=== PATIENT | female | born 1935 | race Caucasian/White ===

== ENCOUNTER 2019-06-09 14:10 | Inpatient (IN) | payer OTHER, MEDICARE ==
[2019-06-09] MEDS ORDERED: SODIUM CHLORIDE 500 ML IV STA ×2 (14:49→16:08)
[2019-06-09 15:17] LABS: BASO % 2.8 % (0-2.0); EOS % 0.2 % (0-4.5); HEMATOCRIT 46.1 % (32.4-45.2); HEMOGLOBIN 15.3 GM/dl (10.7-15.3); LYMPH % 18.5 % (8-40); MCH 29.4 pg (25.7-33.7); MCHC 33.2 g/dl (32.0-36.0); MEAN CELL VOLUME 88.4 fl (80-96); MEAN PLT VOLUME 9.8 fl (7.5-11.1); MONO % 6.3 % (3.8-10.2); NEUT % 72.2 % (42.8-82.8); PLATELET COUNT 280 K/MM3 (134-434); RBC 5.22 M/mm3 (3.60-5.2); RDW 13.2 % (11.6-15.6); WHITE BLOOD COUNT 15.1 K/mm3 (4.0-10.8)
[2019-06-09 15:26] LABS: ALBUMIN 3.8 g/dl (3.4-5.0); BILIRUBIN,TOTAL 1.1 mg/dl (0.2-1); CALCIUM 9.6 mg/dl (8.5-10); POTASSIUM 3.4 mmol/L (3.5-5.1); TOT PROT 6.8 g/dl (6.4-8.2)
--- NOTE | 2019-06-09 19:04 | PDOC ---
Documentation entered by Franky Rosales SCRIBE, acting as scribe for Avery Leong MD. Avery Leong MD: This documentation has been prepared by the Connie alford Nirvannie, SCRIBE, under my direction and personally reviewed by me in its entirety. I confirm that the documentation accurately reflects all work, treatment, procedures, and medical decision making performed by me. History of Present Illness - General Chief Complaint: Vomiting/Diarrhea Stated Complaint: N/V/D Time Seen by Provider: 06/09/19 14:22 History Source: Patient, Family Exam Limitations: No Limitations - History of Present Illness Initial Comments: 06/09/19 15:44 The patient is an 87 year old female, with a significant past medical history of hypothyroidism and essential tremors, who presents to the emergency department via EMS from [facility] with 2 weeks of progressively worsening generalized weakness with new onset one day of NBNB nausea, vomiting, and nonbloody diarrhea. As per daughter and son-in-law at bedside, she has been increasingly weak over the course of the past 2 weeks described as wanting to lay down in bed after minimal walking. Son-in-law notes the patient has been increasingly forgetful and calling them for issues with her phone when it was indeed her remote control. Patient was recently evaluated by a new PCP with a full blood and urine panel. She was found to have a slightly elevated WBC, however, secondary to issues with urine collection her urinalysis is still pending. Family notes her nausea, vomiting, and diarrhea onset today, prompting her arrival to the ED. While in the ED, patient endorses an associated mild cough beginning today. Family and patient denies any new changes in medication. She denies any abdominal pain. She denies recent fevers, chills, headache or dizziness. Family and patient denies recent dysuria, frequency, urgency or hematuria. She denies recent chest pain or shortness of breath. Allergies: NKDA Past surgical history: Hysterectomy. Social history: Resident at [facility]. Primary Care Physician: Dr. Doherty Past History - Past Medical History Allergies/Adverse Reactions: Allergies Allergy/AdvReac Type Severity Reaction Status Date / Time No Known Allergies Allergy Verified 06/09/19 14:48 Home Medications: Ambulatory Orders Donepezil HCl [Aricept -] 10 mg PO DAILY 06/09/19 Famotidine [Pepcid] 20 mg PO DAILY 06/09/19 Levothyroxine [Synthroid -] 75 mcg PO DAILY 06/09/19 Propranolol HCl 20 mg PO HS 06/09/19 Propranolol HCl 40 mg PO AM 06/09/19 Amoxicillin/Potassium Clav [Augmentin 875-125 Tablet] 1 each PO BID #8 tablet Review of Systems - Review of Systems Able to Perform ROS?: Yes Comments:: 06/09/19 15:44 CONSTITUTIONAL: Present: Generalized weakness No reported: Fever, Chills, Diaphoresis, Loss of Appetite HEENT: No reported: Rhinorrhea, Nasal Congestion, Throat Pain, Throat Swelling, Difficulty Swallowing, Mouth Swelling, Ear Pain, Eye Pain, Visual Changes CARDIOVASCULAR: No reported: Chest Pain, Syncope, Palpitations, Irregular Heart Rate, Lightheadedness, Peripheral Edema RESPIRATORY: No reported: Cough, Shortness of Breath, SOB with Exertion, Orthopnea, Wheezing , Stridor, Hemoptysis GASTROINTESTINAL: Present: Nausea, Vomiting, Diarrhea No reported: Abdominal pain, Abdominal Distension,Constipation, Melena, Hematochezia GENITOURINARY: No reported: Dysuria, Frequency, Urgency, Hesitancy, Flank Pain, Genital Pain MUSCULOSKELETAL: No reported: Myalgia, Arthralgia, Joint Swelling, Back pain, Neck Pain SKIN: No reported: Rash, Itching, Pallor HEMEATOLOGIC/IMMUNOLOGIC: No reported: Easy Bleeding, Easy Bruising, Lymphadenopathy, Frequent infections ENDOCRINE: No reported: Unexplained Weight Gain, Unexplained Weight Loss, Heat Intolerance , Cold Intolerance NEUROLOGIC: No reported: Headache, Focal Weakness, Paresthesias, Vertigo, Lightheadedness, Unsteady Gait, Seizure, Incontinence PSYCHIATRIC: No reported: Anxiety, Depression All Other Systems: Reviewed and Negative *Physical Exam - Vital Signs Last Vital Signs Temp Pulse Resp BP Pulse Ox 99.3 F 63 16 109/69 94 L 06/09/19 14:45 06/09/19 14:45 06/09/19 14:45 06/09/19 14:45 06/09/19 14:45 - Physical Exam 06/09/19 14:54 GENERAL: The patient is awake, alert, Nontoxic - in no acute distress. HEAD: Normocephalic, atraumatic. EYES: extraocular movements intact, sclera anicteric, conjunctiva clear. ENT: Normal voice, dry mucous membranes. NECK: Normal range of motion, supple LUNGS: Breath sounds equal, clear to auscultation bilaterally. No wheezes, no rhonchi, no rales. HEART: Regular rate and rhythm, normal S1 and S2 without murmur, rub or gallop. ABDOMEN: Soft, nontender, No guarding, no rebound. No CVA tenderness EXTREMITIES: Normal range of motion, no edema. NEUROLOGICAL: No facial assymetry, Normal speech, Moving all fours extremities spontaneously and symmetrically, Gross touch intact in upper and lower extremities PSYCH: Normal mood, normal affect. SKIN: Warm, Dry, normal turgor, ED Treatment Course - LABORATORY CBC & Chemistry Diagram: 06/12/19 08:04 06/12/19 08:04 - RADIOLOGY Radiology Studies Ordered: Category Date Time Status CHEST X-RAY PORTABLE* [RAD] Stat Radiology 06/09/19 14:49 Ordered Medical Decision Making - Medical Decision Making 06/09/19 14:55 84-year-old female history of hypothyroidism, Essential tremor presenting with complaint of Generalized weakness and malaise for the last several weeks without Any associated complaints, she does endorse several episodes of vomiting and diarrhea today Without abdominal pain, Fevers, chills, dysuria. Family notes the patient did follow-up with her doctor who had some blood work drawn several days ago with a leukocytosis Doubt any other focality. No changes to her dosage of medications of propranolol nor her Synthroid recently. On exam the patient is in no distress she appears generally weak mildly dry mucous membranes. Her neuro exam is intact. Differential for the patient's symptoms is broad and includes occult infection, metabolic derangements, dehydartion, hypothryroidism Will obtain blood work, UA, chest x-ray, EKG, troponin, tsh We will give the patient 500 cc of fluid 06/09/19 19:03 pts labs reviewed unremarkable ua negative will admit for further management of generali weakness pt unable to ambulate due to weakness. may need rehab/placement pt with mild suprapupbic tenderness, will obtain CT Discharge - Discharge Information Problems reviewed: Yes Clinical Impression/Diagnosis: Dehydration, Failure to thrive in adult Condition: Good - Admission Yes - Follow up/Referral - Patient Discharge Instructions - Post Discharge Activity
--- NOTE | 2019-06-09 20:18 | PDOC ---
*Physical Exam - Vital Signs Last Vital Signs Temp Pulse Resp BP Pulse Ox 98.2 F 78 17 150/78 95 06/09/19 18:11 06/09/19 18:11 06/09/19 18:11 06/09/19 18:11 06/09/19 18:11 ED Treatment Course - LABORATORY CBC & Chemistry Diagram: 06/09/19 15:00 06/09/19 15:00 - ADDITIONAL ORDERS Additional order review: Laboratory Results 06/09/19 06/09/19 06/09/19 18:00 15:00 15:00 Sodium 136 Potassium 3.4 L Chloride 102 Carbon Dioxide 25 Anion Gap 9 BUN 27.0 H Creatinine 1.0 Est GFR (CKD-EPI)AfAm 60.76 Est GFR (CKD-EPI)NonAf 52.42 Random Glucose 127 H Calcium 9.6 Total Bilirubin 1.1 H AST 27 ALT 22 Alkaline Phosphatase 52 Creatine Kinase 88 Troponin I < 0.03 Total Protein 6.8 Albumin 3.8 Urine Color Yellow Urine Appearance Clear Urine pH 6.0 Urine Protein Trace Urine Glucose (UA) Negative Urine Ketones 1+ H Urine Blood Trace-lysed Urine Nitrite Negative Urine Bilirubin Negative Urine Urobilinogen 0.2 Ur Leukocyte Esterase Negative Urine RBC 5-10 Urine WBC 2-5 Urine Bacteria Few 06/09/19 15:00 RBC 5.22 H MCV 88.4 MCHC 33.2 RDW 13.2 MPV 9.8 Neutrophils % 72.2 Lymphocytes % 18.5 Monocytes % 6.3 Eosinophils % 0.2 Basophils % 2.8 H - Medications Given in the ED: ED Medications Discontinued Medications Generic Name Dose Route Start Last Admin Trade Name Freq PRN Reason Stop Dose Admin Sodium Chloride 500 mls @ 500 mls/hr 06/09/19 14:49 06/09/19 15:11 Normal Saline - IV 06/09/19 15:48 500 mls/hr ASDIR STA Administration Sodium Chloride 500 mls @ 500 mls/hr 06/09/19 16:08 06/09/19 16:08 Normal Saline - IV 06/09/19 17:07 500 mls/hr ASDIR STA Administration ED Progress Note - Progress Note Progress Note: 06/09/19 20:17 Care of this patient was transferred to [place] from Dr. dc at 1900 hrs. Patient is an 84-year-old female who comes in for failure to thrive. Patient is just has generalized weakness. Patients labs show an elevated white count with no focus at this point. However patient does have a CAT scan pending as she has had no appetite and some nausea vomiting and diarrhea. Discharge - Discharge Information Problems reviewed: Yes Clinical Impression/Diagnosis: Dehydration, Failure to thrive in adult Condition: Good - Admission Yes - Follow up/Referral - Patient Discharge Instructions - Post Discharge Activity
[2019-06-09] MEDS ORDERED: ONDANSETRON 4 MG/2 ML VIAL IVPUSH ONE (20:33)
[2019-06-09] MEDS ORDERED: ONDANSETRON 4 MG/2 ML VIAL ONE (20:35)
[2019-06-09] MEDS: HEPARIN NA (PORCINE) 5,000 UNITS/ML 1ML VIAL SQ SCH (23:15)
[2019-06-10] MEDS: LEVOTHYROXINE NA 75 MCG TABLET (FP) PO SCH (06:43)
--- NOTE | 2019-06-10 07:36 | HP ---
CHIEF COMPLAINT: Generalized weakness PCP: None Neurologist: Zayda Ramires HISTORY OF PRESENT ILLNESS: The patient is an 87 year-old female with a PMH significant for hypothyroidism and essential tremors, who presents to the emergency department via EMS from [facility] with 2 weeks of progressively worsening generalized weakness and with nausea, vomiting, and nonbloody diarrhea x 1 day. As per daughter and son-in-law at bedside, she has been increasingly weak over the course of the past 2 weeks described as wanting to lay down in bed after minimal exertion. Family notes her nausea, vomiting, and diarrhea onset today, prompting her arrival to the ED. While in the ED, patient endorses an associated mild cough beginning today. Family and patient denies any new changes in medication. She denies any abdominal pain. She denies recent fevers, chills, headache or dizziness. Family and patient denies recent dysuria, frequency, urgency or hematuria. She denies recent chest pain or shortness of breath. No significant weight loss, no night sweats, no hemoptysis. ER course was notable for: (1) WBC 15.1k, afebrile (2) Pyuria Recent Travel: No PAST MEDICAL HISTORY: Hypothyroidism Essential tremors PAST SURGICAL HISTORY: Hysterectomy Cholecystectomy Social History: moved from [place] after last year, lives at [facility], daughter lives close by Smoking: no Alcohol: no Drugs: no Family history: mother 69 lung cancer; father 84 colon cancer Allergies No Known Allergies Allergy (Verified 06/09/19 14:48) HOME MEDICATIONS: Home Medications Medication Instructions Recorded Donepezil HCl [Aricept -] 10 mg PO DAILY 06/09/19 Famotidine [Pepcid] 20 mg PO DAILY 06/09/19 Levothyroxine [Synthroid -] 75 mcg PO DAILY 06/09/19 Propranolol HCl 20 mg PO HS 06/09/19 Propranolol HCl 40 mg PO AM 06/09/19 REVIEW OF SYSTEMS: patient lethargic, unable to answer questions PHYSICAL EXAMINATION Vital Signs - 24 hr 06/09/19 06/09/19 06/09/19 14:45 18:11 22:12 Temperature 99.3 F 98.2 F Pulse Rate 63 Pulse Rate [ 78 78 Apical] Respiratory 16 17 18 Rate Blood Pressure 109/69 Blood Pressure 150/78 157/83 [Arm] O2 Sat by Pulse 94 L 95 95 Oximetry (%) 06/09/19 06/09/19 06/10/19 22:55 23:00 02:00 Temperature 98.0 F 97.7 F Pulse Rate 75 94 H Pulse Rate [ Apical] Respiratory 18 18 Rate Blood Pressure 134/69 126/65 Blood Pressure [Arm] O2 Sat by Pulse 94 L 94 L 94 L Oximetry (%) 06/10/19 06:00 Temperature 97.9 F Pulse Rate 73 Pulse Rate [ Apical] Respiratory 18 Rate Blood Pressure 115/68 Blood Pressure [Arm] O2 Sat by Pulse 96 Oximetry (%) GENERAL: Sleeping but arousable, answers questions appropriately, follow commands, falls quickly back to sleep HEAD: Normal with no signs of trauma. EYES: Pupils equal, round and reactive to light, extraocular movements intact, sclera anicteric, conjunctiva clear. LUNGS: Anterior breath sounds CTA HEART: Regular rate and rhythm, S1 and S2 ABDOMEN: Soft, nontender, not distended UPPER EXTREMITIES: 2+ pulses, warm, well-perfused. No cyanosis. No clubbing. No peripheral edema. LOWER EXTREMITIES: 2+ pulses, warm, well-perfused. No calf tenderness. No peripheral edema. NEUROLOGICAL: Cranial nerves II-XII intact. Normal speech. Laboratory Results - last 24 hr 06/09/19 06/09/19 06/09/19 15:00 15:00 15:00 WBC 15.1 H RBC 5.22 H Hgb 15.3 Hct 46.1 H MCV 88.4 MCH 29.4 MCHC 33.2 RDW 13.2 Plt Count 280 MPV 9.8 Absolute Neuts (auto) 11.0 Neutrophils % 72.2 Lymphocytes % 18.5 Monocytes % 6.3 Eosinophils % 0.2 Basophils % 2.8 H Sodium 136 Potassium 3.4 L Chloride 102 Carbon Dioxide 25 Anion Gap 9 BUN 27.0 H Creatinine 1.0 Est GFR (CKD-EPI)AfAm 60.76 Est GFR (CKD-EPI)NonAf 52.42 Random Glucose 127 H Calcium 9.6 Total Bilirubin 1.1 H AST 27 ALT 22 Alkaline Phosphatase 52 Creatine Kinase 88 Troponin I < 0.03 Total Protein 6.8 Albumin 3.8 TSH 0.76 Urine Color Urine Appearance Urine pH Urine Protein Urine Glucose (UA) Urine Ketones Urine Blood Urine Nitrite Urine Bilirubin Urine Urobilinogen Ur Leukocyte Esterase Urine RBC Urine WBC Urine Bacteria 01/27/20 18:00 WBC RBC Hgb Hct MCV MCH MCHC RDW Plt Count MPV Absolute Neuts (auto) Neutrophils % Lymphocytes % Monocytes % Eosinophils % Basophils % Sodium Potassium Chloride Carbon Dioxide Anion Gap BUN Creatinine Est GFR (CKD-EPI)AfAm Est GFR (CKD-EPI)NonAf Random Glucose Calcium Total Bilirubin AST ALT Alkaline Phosphatase Creatine Kinase Troponin I Total Protein Albumin TSH Urine Color Yellow Urine Appearance Clear Urine pH 6.0 Urine Protein Trace Urine Glucose (UA) Negative Urine Ketones 1+ H Urine Blood Trace-lysed Urine Nitrite Negative Urine Bilirubin Negative Urine Urobilinogen 0.2 Ur Leukocyte Esterase Negative Urine RBC 5-10 Urine WBC 2-5 Urine Bacteria Few ASSESSMENT/PLAN: 87 year-old female with a PMH significant for hypothyroidism and essential tremors. Admitted for generalized weakness, nausea, vomiting, diarrhea, cough. Community-acquired pneumonia --CT shows small bibasilar opacities, atelectasis v. infiltrates; together with leukocytosis and cough, will treat as a clinical CAP --start azithro (day #1), ceftriaxone (day #1) --rapid flu, urine pneumonia Ag, blood cultures ordered Pyuria --urine culture pending --ceftriaxone as above Nausea Vomiting Diarrhea --no electrolyte derangement --no episodes since arrival Hypothyroidism --continue levothyroxine Essential tremors --baseline Hypokalemia --replete FEN Fluids: PO intake adequate Electrolytes: replete as indicated Nutrition: regular DVT prophylaxis: subq heparin Physical therapy Dispo: continues to require inpatient care. Full code. Visit type - Emergency Visit Emergency Visit: Yes ED Registration Date: 06/09/19 Care time: The patient presented to the Emergency Department on the above date and was hospitalized for further evaluation of their emergent condition. - New Patient This patient is new to me today: Yes Date on this admission: 06/11/19 - Critical Care Critical Care patient: No
[2019-06-10 07:57] LABS: ALBUMIN 3.3 g/dl (3.4-5.0); BILIRUBIN,TOTAL 1.1 mg/dl (0.2-1); CALCIUM 8.7 mg/dl (8.5-10); CREATININE 0.9 mg/dl (0.55-1.3); MAGNESIUM 2.1 mg/dL (1.8-2.4)
[2019-06-10 07:59] LABS: BASO % 0.8 % (0-2.0); EOS % 0.1 % (0-4.5); HEMATOCRIT 40.6 % (32.4-45.2); HEMOGLOBIN 13.7 GM/dl (10.7-15.3); LYMPH % 17.3 % (8-40); MCH 29.7 pg (25.7-33.7); MCHC 33.8 g/dl (32.0-36.0); MEAN CELL VOLUME 87.9 fl (80-96); MEAN PLT VOLUME 9.8 fl (7.5-11.1); NEUT % 77.8 % (42.8-82.8); PLATELET COUNT 239 K/MM3 (134-434); RBC 4.62 M/mm3 (3.60-5.2); RDW 13.4 % (11.6-15.6); WHITE BLOOD COUNT 16.5 K/mm3 (4.0-10.8)
[2019-06-10] MEDS: POTASSIUM CHLORIDE TABS 20 MEQ TABLET.ER (FP) PO SCH ×2 (09:24→15:00)
[2019-06-10] MEDS: HEPARIN NA (PORCINE) 5,000 UNITS/ML 1ML VIAL SQ SCH ×2 (09:29→21:18)
[2019-06-10] MEDS: FAMOTIDINE 20 MG TABLET PO SCH (09:30)
[2019-06-10] MEDS ORDERED: PT OWN MED DRAWER 7, Y5N ONE (09:37)
[2019-06-10] MEDS ORDERED: DONEPEZIL HCL 10 MG TABLET (FP) PO SCH (10:00)
[2019-06-10] MEDS: AZITHROMYCIN IVPB 500 MG/250 ML BAG IVPB SCH (10:58)
[2019-06-10] MEDS: CEFTRIAXONE 1 G/50 ML PREMIX 50 ML IVPB SCH (10:58)
--- NOTE | 2019-06-10 12:06 | EKG ---
Test Reason : Blood Pressure : / mmHG Vent. Rate : 062 BPM Atrial Rate : 062 BPM P-R Int : 138 ms QRS Dur : 076 ms QT Int : 450 ms P-R-T Axes : 063 051 060 degrees QTc Int : 456 ms NORMAL SINUS RHYTHM SEPTAL INFARCT , AGE UNDETERMINED ABNORMAL ECG Confirmed by MD SANDI, KADEN ([id number]) on 06/10/2019 12:06:11 PM Referred By: DR BERGMAN Confirmed By:KADEN JUNIOR MD
[2019-06-11] MEDS: LEVOTHYROXINE NA 75 MCG TABLET (FP) PO SCH (06:06)
[2019-06-11 07:23] LABS: BASO % 0.4 % (0-2.0); EOS % 0.3 % (0-4.5); HEMATOCRIT 39.2 % (32.4-45.2); HEMOGLOBIN 13.1 GM/dl (10.7-15.3); LYMPH % 13.8 % (8-40); MCH 29.4 pg (25.7-33.7); MCHC 33.4 g/dl (32.0-36.0); MEAN CELL VOLUME 88.1 fl (80-96); MEAN PLT VOLUME 9.3 fl (7.5-11.1); MONO % 4.6 % (3.8-10.2); NEUT % 80.9 % (42.8-82.8); PLATELET COUNT 226 K/MM3 (134-434); RBC 4.45 M/mm3 (3.60-5.2); RDW 13.4 % (11.6-15.6); WHITE BLOOD COUNT 14.3 K/mm3 (4.0-10.8)
[2019-06-11] MEDS ORDERED: PT OWN MED DRAWER 7, Y5N ONE (09:24)
[2019-06-11] MEDS: FAMOTIDINE 20 MG TABLET PO SCH (09:27)
[2019-06-11] MEDS: CEFTRIAXONE 1 G/50 ML PREMIX 50 ML IVPB SCH (09:27)
[2019-06-11] MEDS: HEPARIN NA (PORCINE) 5,000 UNITS/ML 1ML VIAL SQ SCH ×2 (09:27→21:44)
[2019-06-11] MEDS: AZITHROMYCIN IVPB 500 MG/250 ML BAG IVPB SCH (09:27)
--- NOTE | 2019-06-11 09:50 | PN ---
Physical Exam: SUBJECTIVE: Patient seen and examined at bedside. Sitting up, awake, speaks softly but appropriately. Feels tired. Denies cough, fever, sweats, chills, pain. OBJECTIVE: Vital Signs Period Temp Pulse Resp BP Sys/Golden Pulse Ox Last 24 Hr 97.6 F-98.2 F 62-75 16-18 114-150/58-79 95-97 GENERAL: The patient is awake, alert, and fully oriented, much more alert. LUNGS: CTA HEART: Regular rate and rhythm, S1, S2 ABDOMEN: Soft, nontender, nondistended EXTREMITIES: 2+ pulses, warm, well-perfused, no edema. NEUROLOGICAL: Cranial nerves II through XII grossly intact. Normal speech, gait not observed. PSYCH: Normal mood, normal affect. SKIN: Warm, dry, normal turgor Laboratory Results - last 24 hr 06/10/19 06/11/19 11:00 07:04 WBC 14.3 H RBC 4.45 Hgb 13.1 Hct 39.2 MCV 88.1 MCH 29.4 MCHC 33.4 RDW 13.4 Plt Count 226 MPV 9.3 Absolute Neuts (auto) 11.5 Neutrophils % 80.9 Lymphocytes % 13.8 Monocytes % 4.6 Eosinophils % 0.3 Basophils % 0.4 Influenza A (Rapid) Negative Influenza B (Rapid) Negative Active Medications Generic Name Dose Route Start Last Admin Trade Name Freq PRN Reason Stop Dose Admin Famotidine 20 mg 06/10/19 10:00 06/11/19 09:27 Pepcid - PO 20 mg DAILY KEITH Administration Heparin Sodium (Porcine) 5,000 unit 06/09/19 22:00 06/11/19 09:27 Heparin - SQ 5,000 unit BID KEITH Administration Ceftriaxone Sodium 50 mls @ 100 mls/hr 06/10/19 10:30 06/11/19 09:27 Ceftriaxone 1 Gm-D5w Bag IVPB 100 mls/hr DAILY KEITH Administration Protocol Azithromycin 500 mg in 250 mls @ 250 mls/hr 06/10/19 10:30 06/11/19 09:27 Zithromax 500mg Ivpb (Pre-Docked) IVPB 06/14/19 10:59 250 mls/hr DAILY KEITH Administration Levothyroxine Sodium 75 mcg 06/10/19 07:00 06/11/19 06:06 Synthroid - PO 75 mcg AM KEITH Administration Propranolol HCl 20 mg 06/10/19 22:00 06/10/19 21:18 Inderal - PO 20 mg HS KEITH Administration Propranolol HCl 40 mg 06/10/19 10:00 06/11/19 09:27 Inderal - PO 40 mg DAILY KEITH Administration ASSESSMENT/PLAN 87 year-old female with a PMH significant for hypothyroidism and essential tremors. Admitted for generalized weakness, nausea, vomiting, diarrhea, cough. Community-acquired pneumonia --continue azithro (day #1), ceftriaxone (day #1) --rapid flu, urine pneumonia Ag negative Pyuria --urine culture pending --ceftriaxone as above Nausea Vomiting Diarrhea --no electrolyte derangement --no episodes since arrival Hypothyroidism --continue levothyroxine Essential tremors --baseline, continue propranolol Hypokalemia --replete FEN Fluids: PO intake adequate Electrolytes: replete as indicated Nutrition: regular DVT prophylaxis: subq heparin Physical therapy Dispo: continues to require inpatient care. Full code. Visit type - Emergency Visit Emergency Visit: Yes ED Registration Date: 06/09/19 Care time: The patient presented to the Emergency Department on the above date and was hospitalized for further evaluation of their emergent condition. - New Patient This patient is new to me today: No - Critical Care Critical Care patient: No
[2019-06-11] MEDS ORDERED: AZITHROMYCIN IVPB 500 MG in DEXTROSE 5%-WATER - 250 ML IVPB SCH (10:00)
[2019-06-11 10:02] LABS: BILIRUBIN,TOTAL 0.6 mg/dL (0.2-1); BLOOD UREA NITROGEN 17.4 mg/dL (7-18); CALCIUM 8.7 mg/dL (8.5-10.1); CREATININE 0.9 mg/dL (0.55-1.3); MAGNESIUM 2.4 mg/dL (1.8-2.4); POTASSIUM 4.2 mmol/L (3.5-5.1); TOT PROT 6.1 g/dl (6.4-8.2)
[2019-06-11 15:23] LABS: ACTIVATED PTT 23.2 SECONDS (25.2-36.5)
[2019-06-11 15:27] LABS: INR 1.14 (0.82-1.09); PROTHROMBIN TIME (PATIENT) 12.7 SEC (10.2-13.0)
--- NOTE | 2019-06-11 15:33 | EKG ---
Test Reason : Blood Pressure : / mmHG Vent. Rate : 063 BPM Atrial Rate : 063 BPM P-R Int : 130 ms QRS Dur : 084 ms QT Int : 414 ms P-R-T Axes : 054 047 048 degrees QTc Int : 423 ms NORMAL SINUS RHYTHM MINIMAL VOLTAGE CRITERIA FOR LVH, MAY BE NORMAL VARIANT ANTERIOR INFARCT (CITED ON OR BEFORE 09-JUN-2019) ABNORMAL ECG Confirmed by MD Wang, Ramiro ([id number]) on 06/11/2019 3:33:06 PM Referred By: ALLYN PICHARDO Confirmed By:Ramiro Piña MD
[2019-06-12] MEDS: LEVOTHYROXINE NA 75 MCG TABLET (FP) PO SCH (06:06)
[2019-06-12 08:19] LABS: BASO % 1.7 % (0-2.0); EOS % 0.5 % (0-4.5); HEMATOCRIT 41.6 % (32.4-45.2); HEMOGLOBIN 13.9 GM/dl (10.7-15.3); LYMPH % 26.5 % (8-40); MCH 29.6 pg (25.7-33.7); MCHC 33.3 g/dl (32.0-36.0); MEAN CELL VOLUME 88.9 fl (80-96); MEAN PLT VOLUME 9.2 fl (7.5-11.1); MONO % 7.4 % (3.8-10.2); NEUT % 63.9 % (42.8-82.8); PLATELET COUNT 246 K/MM3 (134-434); RBC 4.68 M/mm3 (3.60-5.2); RDW 13.3 % (11.6-15.6)
[2019-06-12 08:25] LABS: ALBUMIN 3.3 g/dl (3.4-5.0); BILIRUBIN,TOTAL 0.9 mg/dl (0.2-1); CALCIUM 8.7 mg/dl (8.5-10); CREATININE 0.8 mg/dl (0.55-1.3); MAGNESIUM 2.1 mg/dL (1.8-2.4); POTASSIUM 3.7 mmol/L (3.5-5.1); TOT PROT 6.3 g/dl (6.4-8.2)
[2019-06-12] MEDS ORDERED: PT OWN MED DRAWER 7, Y5N ONE (09:37)
[2019-06-12] MEDS: FAMOTIDINE 20 MG TABLET PO SCH (10:03)
[2019-06-12] MEDS: CEFTRIAXONE 1 G/50 ML PREMIX 50 ML IVPB SCH (10:05)
[2019-06-12] MEDS: AZITHROMYCIN IVPB 500 MG/250 ML BAG IVPB SCH (10:05)
[2019-06-12] MEDS: HEPARIN NA (PORCINE) 5,000 UNITS/ML 1ML VIAL SQ SCH (10:05)
--- NOTE | 2019-06-12 11:09 | DS ---
Physical Exam: SUBJECTIVE: Patient seen and examined at bedside. Voices no complaints. OBJECTIVE: Vital Signs Period Temp Pulse Resp BP Sys/Golden Pulse Ox Last 24 Hr 97.7 F-98.7 F 61-93 16-20 124-156/60-76 96-98 PHYSICAL EXAM GENERAL: The patient is awake, alert, and fully oriented. LUNGS: CTA HEART: Regular rate and rhythm, S1, S2 ABDOMEN: Soft, nontender, nondistended EXTREMITIES: 2+ pulses, warm, well-perfused, no edema. NEUROLOGICAL: Cranial nerves II through XII grossly intact. Normal speech, gait not observed. PSYCH: Normal mood, normal affect. SKIN: Warm, dry, normal turgor LABS Laboratory Results - last 24 hr 06/11/19 06/12/19 06/12/19 14:50 08:04 08:04 WBC 10.0 RBC 4.68 Hgb 13.9 Hct 41.6 MCV 88.9 MCH 29.6 MCHC 33.3 RDW 13.3 Plt Count 246 MPV 9.2 Absolute Neuts (auto) 6.5 Neutrophils % 63.9 Lymphocytes % 26.5 Monocytes % 7.4 Eosinophils % 0.5 Basophils % 1.7 PT with INR 12.7 INR 1.14 PTT (Actin FS) 23.2 L Sodium 138 Potassium 3.7 Chloride 104 Carbon Dioxide 26 Anion Gap 8 BUN 15.0 Creatinine 0.8 Est GFR (CKD-EPI)AfAm 79.57 Est GFR (CKD-EPI)NonAf 68.66 Random Glucose 92 Calcium 8.7 Magnesium 2.1 Total Bilirubin 0.9 AST 15 ALT 16 Alkaline Phosphatase 51 Total Protein 6.3 L Albumin 3.3 L HOSPITAL COURSE: Date of Admission:06/09/19 Date of Discharge: 06/12/19 Pre hospital course The patient is an 87 year-old female with a PMH significant for hypothyroidism and essential tremors, who presents to the emergency department via EMS from [facility] with 2 weeks of progressively worsening generalized weakness and with nausea, vomiting, and nonbloody diarrhea x 1 day. As per daughter and son-in-law at bedside, she has been increasingly weak over the course of the past 2 weeks described as wanting to lay down in bed after minimal exertion. Family notes her nausea, vomiting, and diarrhea onset today, prompting her arrival to the ED. While in the ED, patient endorses an associated mild cough beginning today. Family and patient denies any new changes in medication. She denies any abdominal pain. She denies recent fevers, chills, headache or dizziness. Family and patient denies recent dysuria, frequency, urgency or hematuria. She denies recent chest pain or shortness of breath. No significant weight loss, no night sweats, no hemoptysis. ER course (1) WBC 15.1k, afebrile (2) Pyuria Subsequent hospital course 87 year-old female with a PMH significant for hypothyroidism and essential tremors. Admitted for generalized weakness, nausea, vomiting, diarrhea, cough. Community-acquired pneumonia --WBC peak 16.5k, trended to wnl; afebrile throughout hospital stay --treatd with azithro IV x 3 days, ceftriaxone x 3 days; discharged on augmentin to complete 7 days of treatment. --rapid flu, urine pneumonia Ag were negative Pyuria --urine culture negative Nausea Vomiting Diarrhea --no electrolyte derangement --no episodes during hospital stay Hypothyroidism --continued levothyroxine Essential tremors --baseline, continued propranolol Minutes to complete discharge: 35 Discharge Summary Problems reviewed: Yes Reason For Visit: N/V/D Current Active Problems Dehydration (Acute) Failure to thrive in adult (Acute) Condition: Good - Instructions - Home Medications Comprehensive Discharge Medication List: Ambulatory Orders Donepezil HCl [Aricept -] 10 mg PO DAILY 06/09/19 Famotidine [Pepcid] 20 mg PO DAILY 06/09/19 Levothyroxine [Synthroid -] 75 mcg PO DAILY 06/09/19 Propranolol HCl 20 mg PO HS 06/09/19 Propranolol HCl 40 mg PO AM 06/09/19 This patient is new to me today: No Emergency Visit: Yes ED Registration Date: 06/09/19 Care time: The patient presented to the Emergency Department on the above date and was hospitalized for further evaluation of their emergent condition. Critical Care patient: No - Discharge Referral Referred to [facility] No
[2019-06-12 13:57] VITALS: BP 144/73; PULSE 60; TEMP 98.1
--- NOTE | 2019-06-12 17:29 | CON.PULM ---
Consult Consult Specialty:: Pulmonary Referred by:: YNES Reason for Consultation:: SOB - History of Present Illness Chief Complaint: SOB History of Present Illness: The patient is an 87 year old female, with a significant past medical history of hypothyroidism and essential tremors, who presents to the emergency department via EMS from [facility] with 2 weeks of progressively worsening generalized weakness with new onset one day of NBNB nausea, vomiting, and nonbloody diarrhea. As per daughter and son-in-law at bedside, she has been increasingly weak over the course of the past 2 weeks described as wanting to lay down in bed after minimal walking. Son-in-law notes the patient has been increasingly forgetful and calling them for issues with her phone when it was indeed her remote control. Patient was recently evaluated by a new PCP with a full blood and urine panel. She was found to have a slightly elevated WBC, however, secondary to issues with urine collection her urinalysis is still pending. Family notes her nausea, vomiting, and diarrhea onset today, prompting her arrival to the ED. While in the ED, patient endorses an associated mild cough beginning today. - History Source History Provided By: Patient, Medical Record Limitations to Obtaining History: Clinical Condition - Past Medical History FIELD OPERATIONS MANAGER: Yes: Other (TREMORS). No: Alzheimer's Cardio/Vascular: No: AFIB Pulmonary: Yes: COPD Gastrointestinal: No: Ascites Hepatobiliary: No: Cirrhosis Renal/: No: Renal Failure Reproductive: Yes: Postmenopausal ...: No Heme/Onc: No: Anemia Infectious Disease: No: AIDS Psych: Yes: Anxiety - Alcohol/Substance Use Hx Alcohol Use: No - Smoking History Smoking history: Never smoked Have you smoked in the past 12 months: No Home Medications - Allergies Allergies/Adverse Reactions: Allergies Allergy/AdvReac Type Severity Reaction Status Date / Time No Known Allergies Allergy Verified 06/09/19 14:48 - Home Medications Home Medications: Ambulatory Orders Donepezil HCl [Aricept -] 10 mg PO DAILY 06/09/19 Famotidine [Pepcid] 20 mg PO DAILY 06/09/19 Levothyroxine [Synthroid -] 75 mcg PO DAILY 06/09/19 Propranolol HCl 20 mg PO HS 06/09/19 Propranolol HCl 40 mg PO AM 06/09/19 Amoxicillin/Potassium Clav [Augmentin 875-125 Tablet] 1 each PO BID #8 tablet Family Medical History Family History: Unremarkable Review of Systems - Review of Systems Respiratory: reports: Cough, SOB on Exertion Physical Exam Vital Sings: Vital Signs Temperature 98.1 F 06/12/19 13:56 Pulse Rate 60 06/12/19 13:56 Respiratory Rate 17 06/12/19 13:56 Blood Pressure 144/73 06/12/19 13:56 O2 Sat by Pulse Oximetry (%) 98 06/12/19 13:55 Eyes: Yes: EOM Intact HENT: Yes: Normocephalic Neck: Yes: Trachea Midline Cardiovascular: Yes: S1, S2 Respiratory: Yes: Diminished Gastrointestinal: Yes: Normal Bowel Sounds Edema: No Labs: CBC, BMP 06/12/19 08:04 06/12/19 08:04 Imaging - Results Chest X-ray: Report Reviewed, Image Reviewed Problem List - Problems (1) COPD (chronic obstructive pulmonary disease) Code(s): J44.9 - CHRONIC OBSTRUCTIVE PULMONARY DISEASE, UNSPECIFIED (2) Dehydration Code(s): E86.0 - DEHYDRATION (3) Failure to thrive in adult Code(s): R62.7 - ADULT FAILURE TO THRIVE Assessment/Plan FORMER SMOKER/CHRONIC CHANGES ON CT CHEST NO EVIDENCE TO SUGGEST PNEUMONIA OR ACUTE BRONCHITIS WOULD CONTINUE TO OBSERVE NO OBJECTION TO DISCHARGE PLANNING Jakob BAZZI MD
[2019-06-13 12:07] VITALS: BMI 17.7
== END 2019-06-12 15:02 | DRG 193 ==
LOC: FER 14:10 → FM/S 22:27
PROVIDERS: ADMIT Internal Medicine; ATTEND Nurse Practitioner Acute Care
DX: J18.9 Pneumonia, unspecified organism (principal); E43 Unspecified severe protein-calorie malnutrition; J98.11 Atelectasis; Z68.1 Body mass index [BMI] 19.9 or less, adult; E03.9 Hypothyroidism, unspecified; R11.2 Nausea with vomiting, unspecified; R19.7 Diarrhea, unspecified; E87.6 Hypokalemia; R25.1 Tremor, unspecified; R82.81 Pyuria; R62.7 Adult failure to thrive; E86.0 Dehydration; J44.9 Chronic obstructive pulmonary disease, unspecified
CPT/HCPCS: 36415; 70450-TC; 71045-TC-FY; 71250-TC; 74177-TC; 76705-TC; 80053; 81003; 81015; 82550; 83735; 84443; 84484; 85025; 85610; 85730; 87040; 87086; 87804; 87899; 93005; 97116-GP; 97162-GP; 99285-25; J1644; Q9967